=== PATIENT | female | born 2000 | race Caucasian/White ===

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

== ENCOUNTER 2018-09-29 12:56 | Emergency (ER) | payer MEDICAID ==
--- NOTE | 2018-09-29 13:29 | C.PDOC ---
History Of Present Illness 17 y/o female presents to the ED complaining of suprapubic pain since yesterday. Patient denies any associated fever, chills, nausea, vomiting, or diarrhea. She describes pain as intermittent and crampy in nature. Denies urinary complaints. Time Seen by Provider: 09/29/18 13:03 Chief Complaint (Nursing): Female Genitourinary History Per: Patient History/Exam Limitations: no limitations Onset/Duration Of Symptoms: Intermittent Episodes Current Symptoms Are (Timing): Still Present Quality Of Discomfort: Cramping Past Medical History Reviewed: Historical Data, Nursing Documentation, Vital Signs Vital Signs: Last Vital Signs Temp 97.6 F 09/29/18 13:00 Pulse 88 09/29/18 13:00 Resp 18 09/29/18 13:00 BP 109/76 09/29/18 13:00 Pulse Ox 99 09/29/18 13:00 - Medical History PMH: Bipolar Disorder, Depression, HIV (2013) - [facility] Procedures PACKED CELL TRANSFUSION (08/10/14) Family History: States: Unknown Family Hx - Social History Hx Tobacco Use: No Hx Alcohol Use: No Hx Substance Use: No - Immunization History Hx Tetanus Toxoid Vaccination: No Hx Influenza Vaccination: Yes Hx Pneumococcal Vaccination: No Review Of Systems Except As Marked, All Systems Reviewed And Found Negative. Constitutional: Negative for: Fever, Chills Gastrointestinal: Positive for: Abdominal Pain. Negative for: Nausea, Vomiting, Diarrhea, Constipation Genitourinary: Negative for: Dysuria, Frequency, Incontinence, Hematuria Musculoskeletal: Negative for: Back Pain Neurological: Negative for: Weakness Physical Exam - Physical Exam Appears: Well, Non-toxic, No Acute Distress Skin: Warm, Dry Head: Atraumatic, Normacephalic Eye(s): bilateral: Normal Inspection Neck: Normal ROM Chest: Symmetrical Respiratory: No Accessory Muscle Use, Other (NARD) Gastrointestinal/Abdominal: Soft, No Tenderness, No Guarding, No Rebound Back: Normal Inspection, No CVA Tenderness Extremity: Bilateral: Atraumatic, Normal Color And Temperature Pulses: Left Radial: Normal, Right Radial: Normal Neurological/Psych: Oriented x3, Normal Speech Gait: Steady ED Course And Treatment - Laboratory Results Urine POC: Negative O2 Sat by Pulse Oximetry: 99 (RA) Pulse Ox Interpretation: Normal Medical Decision Making Medical Decision Making: Plan: UA and urine preg ordered. Disposition Counseled Patient/Family Regarding: Studies Performed, Diagnosis, Need For Followup, Rx Given - Disposition Referrals: YOUR,PMD [Other] Disposition: HOME/ ROUTINE Disposition Time: 14:20 Condition: GOOD Prescriptions: Ibuprofen [Motrin] 600 mg PO Q6 #30 tab Nitrofurantoin Macrocrystals [Macrobid] 1 cap PO BID #14 cap Phenazopyridine HCl [Pyridium] 200 mg PO BID #6 tablet Instructions: Urinary Tract Infection, Adult (DC) Forms: [employer] (Thai) - Clinical Impression Clinical Impression: Urinary tract infection - Scribe Statement The provider has reviewed the documentation as recorded by the Teri Menard Provider Attestation: All medical record entries made by the Teri were at my direction and personally dictated by me. I have reviewed the chart and agree that the record accurately reflects my personal performance of the history, physical exam, medical decision making, and the department course for this patient. I have also personally directed, reviewed, and agree with the discharge instructions and disposition.
[2018-09-29 14:09] LABS: SQUAMOUS EPITHIAL 18 /hpf (0-5); URINE BACTERIA FEW (<OCC); URINE BILIRUBIN NEGATIVE (NEGATIVE); URINE BLOOD 1+ (NEGATIVE); URINE CLARITY Hazy (Clear); URINE COLOR Yellow (YELLOW); URINE GLUCOSE (UA) NORMAL (Normal); URINE LEUKOCYTE ESTERASE 2+ Leu/uL (Negative); URINE PROTEIN NEGATIVE (NEGATIVE); URINE UROBILINOGEN NORMAL mg/dL (0.2-1.0)
[2018-09-29 14:32] VITALS: BP 100/63; PULSE 76; RESP 20; TEMP 98; O2SAT 100
== END 2018-09-29 14:38 | disposition home or self-care (01) ==
LOC: C.ER 12:56
DX: N39.0 Urinary tract infection, site not specified (principal)